=== PATIENT | female | born 1955 | race Caucasian/White ===

== ENCOUNTER 2016-10-09 22:27 | Emergency (ER) | payer BC ==
[~2016-10-09] VITALS: Ht 167.6 cm; Wt 66.5 kg
[2016-10-09 22:35] VITALS: Ht 167.6 cm; Wt 66.5 kg
--- NOTE | 2016-10-10 01:04 | RADRPT ---
PROCEDURE: US DVT. CLINICAL INDICATION: Left lower extremity pain and swelling. TECHNIQUE: Multiple longitudinal and transverse images of the left lower extremity veins were obta ined with short scale and color Doppler imaging. 2D grayscale measurements with compression, color D oppler flow, and augmentation was performed. The calf veins were interrogated as well. COMPARISON: No prior studies are available for comparison. FINDINGS: The left common femoral, femoral and popliteal veins are normally compressible throughout. Color fl ow demonstrates normal filling of the vessels. Normal waveforms are visualized and there is normal response to augmentation. The calf veins are visualized and are equally unremarkable. IMPRESSION: 1. No left lower extremity DVT. RPTAT: HTAR .Michael Shane MD, MD Date Time Electronically viewed and signed by .Michael Shane MD, on 10/10/2016 01:04 .R/
[2016-10-10] MEDS ORDERED: ACET500C5 PO (01:12)
[2016-10-10 01:29] VITALS: BP 140/81; PULSE 85; RESP 20
--- NOTE | 2016-10-10 01:36 | ERD ---
ER Documentation Chief Complaint Date/Time DATE: 10/10/16 TIME: 01:29 Chief Complaint sent by PMD to R/O DVT in her L leg HPI 61-year-old female complaining of diffuse left lower leg pain 2 days. She was sent here by her PCP to rule out DVT. Patient stated that she has a history of DVT in her left leg many years ago. About 1 month ago, she flew to [facility]. Her left leg was swollen shortly after her flight. But she did not have any leg pain or redness at that time. She flew home about 3 weeks ago. Again, she had swelling her left lower leg after the flight. Again she did not have any leg pain or redness at that time. The leg pain started 2 days ago, is diffuse in nature. Denies shortness of breath. Denies chest pain. ROS All systems reviewed and are negative except as per history of present illness. Medications Home Meds Active Scripts Acetaminophen* (Tylophen*) 500 Mg Capsule, 1 CAP PO Q6H Y for PAIN AND OR ELEVATED TEMP, #20 CAP Prov:MELIZA MAZA [employer]OUT [employer]ER 10/10/16 Allergies Allergies: Coded Allergies: No Known Allergy (Unverified , 12/26/12) PMhx/Soc History of Surgery: Yes (hysterectomy) Anesthesia Reaction: No Hx Miscellaneous Medical Probl: Yes (High Cholesterol, and blood clots) Hx Alcohol Use: No Hx Substance Use: No Hx Tobacco Use: No Smoking Status: Never smoker Physical Exam Vitals Vital Signs Date Time Temp Pulse Resp B/P Pulse Ox O2 Delivery O2 Flow Rate FiO2 10/09/16 22:35 98.6 94 18 175/79 97 Physical Exam General: Well-developed, well-nourished, conscious and coherent, in no distress Skin: Warm and dry without rash, good texture and turgor Head: Normocephalic without evidence of trauma Eyes: Sclera and conjunctivae normal; pupils equal, round, and reactive to light; extraocular movements are intact Neck: Supple without meningismus or adenopathy. Carotids are equal. Trachea midline. No bruits or JVD Chest: Normal AP diameter. Good expansion without retractions. Nontender. Lungs are clear to auscultate bilaterally with good tidal volume Heart: Regular rate and rhythm. No murmur, rub, or gallops heard Extremities: Mild, nonpitting edema of the left lower leg. No erythema, nontender. Full range of motion. Good strength bilaterally. No clubbing, cyanosis, or edema. Peripheral pulses are intact. Sensation intact Neuro: Alert and oriented 4, GCS 15. Cranial nerves grossly intact. Motor and sensory exams nonfocal. Moves all extremities. Speech clear. Gait normal Results 24 hrs PROCEDURE: US DVT. CLINICAL INDICATION: Left lower extremity pain and swelling. TECHNIQUE: Multiple longitudinal and transverse images of the left lower extremity veins were obtained with short scale and color Doppler imaging. 2D grayscale measurements with compression, color Doppler flow, and augmentation was performed. The calf veins were interrogated as well. COMPARISON: No prior studies are available for comparison. FINDINGS: The left common femoral, femoral and popliteal veins are normally compressible throughout. Color flow demonstrates normal filling of the vessels. Normal waveforms are visualized and there is normal response to augmentation. The calf veins are visualized and are equally unremarkable. IMPRESSION: 1. No left lower extremity DVT. RPTAT: HTAR .Michael Shane MD, Date Time Electronically viewed and signed by .Michael Shane MD, MD on 10/10/2016 01:04 .R/ CC: MELIZA MAZA SCOUT SNIPER Procedures/MDM Well-appearing 61-year-old female with history of remote history of DVT is sent here by PCP to rule out DVT of the left leg. Venous ultrasound of the left leg is negative for DVT. Patient complaint of diffuse left lower leg pain, she does not have any erythema or induration. I have low suspicion for cellulitis. Her reported leg swelling after flights is likely due to fluid retention. I doubt PE or CHF. Patient appears well, stable for discharge and outpatient management. Medical decision making shared with patient and family. Education provided to patient and family. Patient and family expressed understanding of the plan. Medications on discharge: None. Follow-up: Primary care provider in 2-3 days or return to ED if worse. Disclaimer: Inadvertent spelling and grammatical errors are likely due to EHR/ dictation software use and do not reflect on the overall quality of patient care. Also, please note that the electronic time recorded on this note does not necessarily reflect the actual time of the patient encounter. Departure Diagnosis: Primary Impression: Leg pain, left Condition: Stable Patient Instructions: Possible Causes of Low Back or Leg Pain Referrals: COMMUNITY CLINICS YOU HAVE RECEIVED A MEDICAL SCREENING EXAM AND THE RESULTS INDICATE THAT YOU DO NOT HAVE A CONDITION THAT REQUIRES URGENT TREATMENT IN THE EMERGENCY DEPARTMENT. FURTHER EVALUATION AND TREATMENT OF YOUR CONDITION CAN WAIT UNTIL YOU ARE SEEN IN YOUR DOCTORS OFFICE WITHIN THE NEXT 1-2 DAYS. IT IS YOUR RESPONSIBILITY TO MAKE AN APPOINTMENT FOR FOLOW-UP CARE. IF YOU HAVE A PRIMARY DOCTOR --you should call your primary doctor and schedule an appointment IF YOU DO NOT HAVE A PRIMARY DOCTOR YOU CAN CALL OUR PHYSICIAN REFERRAL HOTLINE AT IF YOU CAN NOT AFFORD TO SEE A PHYSICIAN YOU CAN CHOSE FROM THE FOLLOWING [facility] [address] [facility]. [facility] [address] [facility] [facility] [facility] [facility] [address] [facility] [facility] [address] [facility]. [facility] [address] [facility]. [facility]. [address] Additional Instructions: Call your primary care doctor TOMORROW for an appointment during the next 2-3 days.See the doctor sooner or return here if your condition worsens before your appointment time. MELIZA MAZA NP Oct 10, 2016 01:36
== END 2016-10-10 01:30 | disposition home or self-care (01) ==
LOC: FTE 22:27
DX: M79.662 Pain in left lower leg (principal)
CPT/HCPCS: 93971